=== PATIENT | female | born 1985 | race African-American/Black ===

== ENCOUNTER 2019-07-08 13:54 | Emergency (ER) | payer OTHER ==
[~2019-07-08] VITALS: Ht 162.6 cm; Wt 47.6 kg
--- NOTE | 2019-07-08 13:55 | NUR ---
ED Nurse Note: Patient brought into ED by [facility] [id number] from home due to anxiety. Patient presented anxious, HR 115, other VSS at this time.
[2019-07-08] MEDS ORDERED: LORazepam 0.5mg tab ORAL ONE (14:15)
[2019-07-08 14:35] VITALS: BP 120/75
[2019-07-08 15:00] VITALS: BP 117/72
--- NOTE | 2019-07-08 15:10 | Emergency Room Report ---
History of Present Illness General Chief Complaint: Behavioral Complaint Source: Patient, EMS Present Illness HPI 33-year-old female with no significant past medical history other than anxiety brought in by paramedics due to feeling numbness and tingling in all extremities , palpitation, chest pain, dizziness. Patient reports that she has history of anxiety and takes Xanax as needed. Denies any suicidal homicidal ideation. Denies any history of cardiac disease. Denies any drug use or tobacco smoke. Denies any alcohol intake. Also has his son here with her. Has not taken medication for symptom relief. When I go into the examination room patient sitting on the floor reports that this is how she feels comfortable. She wants her heart to be checked. However after I tell her that EKG and chest x-ray are within normal limits she asked for prescription for Ativan. Patient reports that she no longer has Ativan at home. Advised her that we cannot write that for her and she needs to follow-up with psychiatrist in that regard. However propranolol can be taken for a short time and should not be mixed with Ativan. Patient also should refrain from marijuana smoke. Denies recent travel, fever and chills, URI symptoms COVID-19 risk:Contact w/high r: No COVID-19 risk:Travel to affect: No Has patient experienced martinez: No Allergies: Coded Allergies: No Known Allergies (Unverified , 07/08/19) Patient History Past Medical History: see triage record Past Surgical History: none Pertinent Family History: none Now: No Immunizations: UTD Reviewed Nursing Documentation: PMH: Agreed; PSxH: Agreed Nursing Documentation-PMH Past Medical History: No History, Except For History Of Psychiatric Problem: Yes - anxiety Review of Systems All Other Systems: negative except mentioned in HPI Physical Exam Vital Signs Date Time Temp Pulse Resp B/P (MAP) Pulse Ox O2 Delivery O2 Flow Rate FiO2 07/08/19 13:49 97.5 108 20 120/75 (90) 97 Room Air Sp02 EP Interpretation: reviewed, normal General Appearance: alert, GCS 15, non-toxic, mild distress Head: normocephalic, atraumatic Eyes: bilateral eye normal inspection, bilateral eye PERRL ENT: hearing grossly normal, normal pharynx, no angioedema, normal voice Neck: full range of motion, supple/symm/no masses Respiratory: chest non-tender, lungs clear, normal breath sounds, no rhonchi, no wheezing, speaking full sentences Cardiovascular #1: regular rate, rhythm, no edema, no murmur Cardiovascular #2: 2+ carotid (R), 2+ carotid (L), 2+ radial (R), 2+ radial (L) Gastrointestinal: normal bowel sounds, non tender, soft, non-distended, no guarding, no rebound Rectal: deferred Genitourinary: no CVA tenderness Musculoskeletal: back normal Neurologic: alert, motor strength/tone normal, oriented x3, sensory intact, responsive, speech normal Psychiatric: judgement/insight normal, memory normal, mood/affect normal, no suicidal/homicidal ideation Skin: no rash Lymphatic: no adenopathy Medical Decision Making PA Attestation All my diagnosis and treatment plans were reviewed ad discussed with my supervising physician Dr. Peña Diagnostic Impression: Primary Impression: Anxiety Additional Impression: Marijuana abuse ER Course 33-year-old female with no significant past medical history other than anxiety brought in by paramedics due to feeling numbness and tingling in all extremities , palpitation, chest pain, dizziness. Patient reports that she has history of anxiety and takes Xanax as needed. Denies any suicidal homicidal ideation. Denies any history of cardiac disease. Denies any drug use or tobacco smoke. Denies any alcohol intake. Also has his son here with her. Has not taken medication for symptom relief. When I go into the examination room patient sitting on the floor reports that this is how she feels comfortable. She wants her heart to be checked. However after I tell her that EKG and chest x-ray are within normal limits she asked for prescription for Ativan. Patient reports that she no longer has Ativan at home. Advised her that we cannot write that for her and she needs to follow-up with psychiatrist in that regard. However propranolol can be taken for a short time and should not be mixed with Ativan. Patient also should refrain from marijuana smoke. Denies recent travel, fever and chills, URI symptoms Ddx considered but are not limited to: RI, Angina, COPD, GERD, anxiety, marijuana abuse Vital signs: are WNL, pt. is afebrile H&PE are most consistent with anxiety, marijuana abuse ORDERS: EKG, Chest XR, urine , tox screen, propranolol, Tylenol for chest pain ED INTERVENTIONS: NS bolus, 1 tablet of 0.5 mg p.o. Ativan DISCHARGE: At this time pt. is stable for d/c to home. Will provide printed patient care instructions, and any necessary prescriptions. Care plan and follow up instructions have been discussed with the patient prior to discharge. Patient follow-up primary care provider and psychiatrist, given list of mental health facilities. Avoid taking Xanax and mixing it with propranolol. Avoid using marijuana. Follow-up with primary doctor in regards to unspecified chest pain. Symptoms are secondary to anxiety and marijuana abuse. Patient vital signs are within normal limits no further evaluation needed. We also had patient sign symptoms of the room and discussed toxicology EKG Diagnostic Results Rate: normal Rhythm: NSR ST Segments: no acute changes Other Impression No acute ST changes Chest X-Ray Diagnostic Results Chest X-Ray Diagnostic Results : Chest X-Ray Ordered: Yes # of Views/Limited/Complete: 1 View Indication: Chest Pain EP Interpretation: Yes PA Xray: Interpretation reviewed, by supervising MD, and agrees with findings. Interpretation: no consolidation, no effusion, no pneumothorax, no acute cardiopulmonary disease Impression: No acute disease Electronically Signed by: Anjali Bhat PA-C Last Vital Signs Date Time Temp Pulse Resp B/P (MAP) Pulse Ox O2 Delivery O2 Flow Rate FiO2 07/08/19 14:35 97.5 20 120/75 97 Room Air 07/08/19 14:35 108 Disposition: HOME, SELF-CARE Condition: Stable Scripts Propranolol Hcl* (INDERAL*) 10 Mg Tablet 10 MG ORAL DAILY for 5 Days, #5 TAB 0 Refills Prov: Anjali Vera 07/08/19 Acetaminophen* (TYLENOL EXTRA STRENGTH*) 500 Mg Tablet 500 MG ORAL Q8H PRN for Prn Headache/Temp > 101, #30 TAB 0 Refills Prov: Anjali Vera 07/08/19 Referrals: NOT CHOSEN IPA/,REFERRING (PCP) Patient Instructions: Cannabis Use Disorder, Generalized Anxiety Disorder Additional Instructions: Follow-up with your psychiatrist, take medication as directed, I do not recommend anything within the Xanax family especially when you are taking propranolol. Avoid use of marijuana as able increase of anxiety. If worsening symptoms return to the emergency room Anjali Vera Jul 08, 2019 15:10
[2019-07-08] MEDS ORDERED: PROPRANOLOL HCL10 MG ORAL (15:11)
[2019-07-08] MEDS ORDERED: TYLENOL EXTRA500 MG ORAL (15:11)
--- NOTE | 2019-07-08 15:21 | Diagnostic Imaging Report ---
Indication: Dyspnea Comparison: None A single view chest radiograph was obtained. Findings: Cardiomediastinal appearance is within normal limits for age. The lungs are clear. Pulmonary vascularity is appropriate. The diaphragmatic contour is smooth and costophrenic angles are sharp. No pleural effusions are identified. The bones are unremarkable. Impression: No acute findings
--- NOTE | 2019-07-08 15:23 | NUR ---
ER DISCHARGE NOTE: Patient is cleared to be discharged per ANIL WALLIS, pt is aox4, on room air, with stable vital signs. pt was given dc and prescription instructions, pt was able to verbalize understanding, pt id band and iv site removed without complications. pt is able to ambulate with steady gait. pt took all belongings.
[2019-07-08 15:24] VITALS: BP 117/72
== END 2019-07-08 15:20 | disposition home or self-care (01) ==
LOC: EDBD 13:54 → EMR 14:10
DX: F41.9 Anxiety disorder, unspecified (principal); F12.10 Cannabis abuse, uncomplicated
CPT/HCPCS: 71045; 80307; 81025; 93005; 96360; 99284; J7030